=== PATIENT | female | born 2000 | race American Indian/Alaskan Native ===

== ENCOUNTER 2021-05-01 13:58 | Emergency (ER) | payer SELFPAY ==
[2021-05-01 15:18] VITALS: BP 124/82
--- NOTE | 2021-05-01 15:30 | Emergency Department Report ---
ED ENT HPI - General Chief complaint: Dental/Oral Stated complaint: FACIAL SWELLING Source: patient Mode of arrival: Ambulatory Limitations: No Limitations - History of Present Illness Initial comments: 30-year-old female presents to the ED complaining left jaw swelling x1 week. States that her jaw has been intermittent swelling using ice to relieve the swelling. States that she do not have dental insurance. Current has a wisdom tooth eruption. She has moderate swelling noted to the left jaw area. Denies any pain at present. She is alert and oriented x3. No acute distress noted Onset/Timin -: week(s) Severity scale (0 -10): 0 Worsens with: none Context- Dental: history of dental caries Associated Symptoms: denies: fever, cough, toothache, pain with swallowing, sore throat, discharge from ear - Related Data Previous Rx's Medication Instructions Recorded Last Taken Type Acetaminophen/Codeine [Tylenol 1 tab PO Q6H PRN 3 Days #12 tab 05/01/21 Unknown Rx /Codeine # 3 tab] Ibuprofen [Motrin] 800 mg PO Q8HR PRN 15 Days #30 05/01/21 Unknown Rx tablet Penicillin V Potassium 500 mg PO BID 10 Days #20 tab 05/01/21 Unknown Rx Allergies Allergy/AdvReac Type Severity Reaction Status Date / Time No Known Allergies Allergy Verified 05/01/21 15:14 ED Dental HPI - General Chief complaint: Dental/Oral Stated complaint: FACIAL SWELLING Source: patient Mode of arrival: Ambulatory Limitations: No Limitations - Related Data Previous Rx's Medication Instructions Recorded Last Taken Type Acetaminophen/Codeine [Tylenol 1 tab PO Q6H PRN 3 Days #12 tab 05/01/21 Unknown Rx /Codeine # 3 tab] Ibuprofen [Motrin] 800 mg PO Q8HR PRN 15 Days #30 05/01/21 Unknown Rx tablet Penicillin V Potassium 500 mg PO BID 10 Days #20 tab 05/01/21 Unknown Rx Allergies Allergy/AdvReac Type Severity Reaction Status Date / Time No Known Allergies Allergy Verified 05/01/21 15:14 ED Review of Systems ROS: Stated complaint: FACIAL SWELLING Other details as noted in HPI Constitutional: denies: chills, fever Eyes: denies: eye pain, eye discharge, vision change ENT: denies: ear pain, throat pain Respiratory: denies: cough, shortness of breath, wheezing Cardiovascular: denies: chest pain, palpitations Endocrine: no symptoms reported Gastrointestinal: denies: abdominal pain, nausea, diarrhea Genitourinary: denies: urgency, dysuria, discharge Musculoskeletal: denies: back pain, joint swelling, arthralgia Skin: denies: rash, lesions Neurological: denies: headache, weakness, paresthesias Psychiatric: denies: anxiety, depression Hematological/Lymphatic: denies: easy bleeding, easy bruising ED Past Medical Hx - Medications Home Medications: Home Medications Medication Instructions Recorded Confirmed Last Taken Type Acetaminophen/Codeine [Tylenol 1 tab PO Q6H PRN 3 Days #12 tab 05/01/21 Unknown Rx /Codeine # 3 tab] Ibuprofen [Motrin] 800 mg PO Q8HR PRN 15 Days #30 05/01/21 Unknown Rx tablet Penicillin V Potassium 500 mg PO BID 10 Days #20 tab 05/01/21 Unknown Rx ED Physical Exam - General Limitations: No Limitations General appearance: alert, in no apparent distress - Head Head exam: Present: atraumatic, normocephalic - Eye Eye exam: Present: normal appearance - ENT ENT exam: Present: mucous membranes moist - Neck Neck exam: Present: normal inspection - Respiratory Respiratory exam: Present: normal lung sounds bilaterally. Absent: respiratory distress - Cardiovascular Cardiovascular Exam: Present: regular rate, normal rhythm. Absent: systolic murmur, diastolic murmur, rubs, gallop - GI/Abdominal GI/Abdominal exam: Present: soft, normal bowel sounds - Extremities Exam Extremities exam: Present: normal inspection - Back Exam Back exam: Present: normal inspection - Neurological Exam Neurological exam: Present: alert, oriented X3 - Psychiatric Psychiatric exam: Present: normal affect, normal mood - Skin Skin exam: Present: warm, dry, intact, normal color. Absent: rash ED Course Vital Signs 05/01/21 15:15 Temperature 98.7 F Pulse Rate 78 Respiratory 16 Rate Blood Pressure 124/82 [Left] O2 Sat by Pulse 100 Oximetry ED Medical Decision Making - Medical Decision Making 30-year-old female presents to the ED complaining left jaw swelling x1 week. States that her jaw has been intermittent swelling using ice to relieve the swelling. States that she do not have dental insurance. Current has a wisdom tooth eruption. She has moderate swelling noted to the left jaw area. Denies any pain at present. She is alert and oriented x3. No acute distress noted. Physical examination unremarkable show no trismus ,no drooling. uvula midline. Rechecked the patient is resting quietly quietly and comfortable and feeling better. I discussed the results of diagnostic study, my clinical impression and the plan for further treatment with the patient. Patient agrees with plan and discharge at this present time. All question addressed. I have given the patient instruction regarding a diagnosis ,expectation ,follow- up and return precaution. I explained to the patient that emergent condition may arise and to return to the ED for new worsen and any new persisting condition. I have explained the importance of following up with the primary care physician or referral physician listed below has instructed. The patient verbalized understanding of discharge instruction. Critical care attestation.: If time is entered above; I have spent that time in minutes in the direct care of this critically ill patient, excluding procedure time. ED Disposition Clinical Impression: Dental abscess Disposition: HOME / SELF CARE / HOMELESS Is pt being admited?: No Does the pt Need Aspirin: No Condition: Stable Instructions: Dental Abscess, [id number] Additional Instructions: Take medication as prescribed Follow-up with dentist Return to ED for any worsening symptom Prescriptions: Ibuprofen [Motrin] 800 mg PO Q8HR PRN 15 Days #30 tablet PRN Reason: Pain, Mild (1-3) Penicillin V Potassium 500 mg PO BID 10 Days #20 tab Acetaminophen/Codeine [Tylenol /Codeine # 3 tab] 1 tab PO Q6H PRN 3 Days #12 tab PRN Reason: Pain, Moderate (4-6) Referrals: [facility] [Outside] - 3-5 Days Forms: Work/School Release Form(ED)
== END 2021-05-01 15:53 | disposition home or self-care (01) ==
LOC: ED 13:58
DX: K04.7 Periapical abscess without sinus (principal)
CPT/HCPCS: 99282